=== PATIENT | female | born 1970 | race Caucasian/White ===

== ENCOUNTER 2024-12-19 06:28 | Day surgery (SDC) | payer OTHER, SELFPAY ==
[2024-12-19] VITALS (18 sets, daily range): BP systolic 135–184; BP diastolic 71–113; BMI 35.2
[2024-12-19] MEDS: LOW STRENGTH ASPIRIN 324 MG PO (07:17)
[2024-12-19] MEDS: NSS 301 ML IV (07:45)
[2024-12-19 09:02] LABS: ACT-LR - POC 334 Seconds (116-155)
[2024-12-19 09:26] LABS: ACT-LR - POC 295 Seconds (116-155)
[2024-12-19] MEDS: TOPROL XL 25 MG PO (11:12)
[2024-12-19] MEDS: NSS 1000 IV (13:15)
--- NOTE | 2024-12-19 14:03 | W.PN.UPDATE ---
Update Note
Progress Note Update
Pt seen post LAD PCI. Right radial cath site without ht/bleeding. OOB ambulating. Post EKG NSR 60s, no acute changes. Pt understands importance of uninterrupted DAPT w/asa, plavix. Pt had been instructed to start metoprolol xl 25/d but had not
started yet. Will start in AM, new rx sent to pharmacy. Cardiac rehab consulted. Followup with Dr. Moreno as scheduled. Home later today if cath site/tele remain stable.
--- NOTE | 2024-12-19 19:55 | ITS.CL.PN ---
[employer] - Procedure Note
Procedure
Procedure Note:
CARDIAC CATHETERIZATION REPORT
Date of Procedure: 12/19/24
Referring: Dr. Cayetano Moreno MD
Indication: Chest pain, positive cardiac stress test
PROCEDURE(S)
1. left heart catheterization
2. coronary angiography
3. IVUS LAD
4. PCI with stent LAD
ACCESS: 6F right radial artery (closure: radial band)
CATHETERS
1. 6F JR4
2. 6F JL3.5
3. 6F XB3.5 guide
MODERATE SEDATION: 75 minutes of moderate sedation was utilized. An independent medical collections specialist was present to assist with and help manage the patient's level of consciousness and physiologic status.
ULTRASOUND GUIDED VASCULAR ACCESS (right radial artery): Ultrasound was utilized for vascular access. The vessel was visualized under ultrasound and noted to be patent. An image of the vessel was stored permanently in the patient's medical record.
Under direct ultrasound guidance, vascular access was obtained using a modified Seldinger technique and a 6 [place] sheath was placed.
HEMODYNAMIC DATA
LV 145/8 (EDP 15) mmHg
AO 147/91 (mean 117) mmHg
CORONARY ANGIOGRAPHY
Dominance: right
LM: large, normal
LAD: large vessel giving rise to one moderate caliber diagonal branch. There is a 80% stenosis in the mid-LAD and otherwise mild non-obstructive disease.
LCx: large vessel giving rise to a medium sized OM1, large OM2, small OM3, and two small LPL branches. There is mild non-obstructive disease.
RCA: large vessel giving rise to a medium caliber RPDA and large RPL branch. There is mild non-obstructive disease.
IVUS-guided PCI with CARL to LAD
Heparin was used for anticoagulation to achieve ACT>300. The left main was engaged with a XB3.5 guide catheter and a Runthrough coronary wire placed in the distal LAD. Initial lesion preparation was performed with a 2.0x12 mm balloon with full
expansion. IVUS was then performed demonstrating a 3.0 mm distal and 3.5 mm proximal reference vessel diameter and mild calcification in the stenosis. A 3.0x22 mm [place] CARL was delivered and deployed at 16 lance. The stent was post-dilated to
high pressure with a 3.0 mm NC distally and 3.5 mm NC proximally. IVUS demonstrated full stent expansion and apposition without dissection. Final angiographic result was outstanding. The wire and guide were removed and a TR band placed. The patient
was loaded with 600 mg Plavix.
RADIATION: dose 1393 mGy; DAP 84.6 Gy*cm2; fluoroscopy time 13.4 min
CONCLUSIONS
1. single vessel coronary artery disease in a right dominant system
2. mildly elevated LV filling pressure and no aortic stenosis
3. successful IVUS-guided PCI with CARL to mid-LAD with placement of a 3.0x22 mm [place] Imperial CARL post-dilated to 3.0 mm distally and 3.5 mm proximally
RECOMMENDATIONS
1. expectant management after cardiac catheterization via right radial approach
2. DAPT with ASA/Plavix for 6 months
3. aggressive secondary management of coronary artery disease
Copy to: Dr. Cayetano Moreno MD (gunstock repairer); Dr. Leidy Gomez DO (PCP)
Signed: Rick Raygoza MD, PhD
== END 2024-12-19 15:00 | disposition home or self-care (01) ==
LOC: CATH 06:28
PROVIDERS: ATTENDING PHYSICIAN Student in an Organized Health Care Education/Training Program; OTHER PHYSICIAN Internal Medicine Cardiovascular Disease
DX: I25.10 Atherosclerotic heart disease of native coronary artery without angina pectoris (principal); R07.9 Chest pain, unspecified; R94.39 Abnormal result of other cardiovascular function study; Z79.82 Long term (current) use of aspirin; Z79.02 Long term (current) use of antithrombotics/antiplatelets; Z79.899 Other long term (current) drug therapy
CPT/HCPCS: 99152; 99153; 92978; 76937; 85347; 93005; 93458; C1725; C1753; C1874; C1894; C9600; Q9967